=== PATIENT | male | born 1960 | race Caucasian/White ===

== ENCOUNTER 2020-12-19 11:51 | Outpatient (RCR) | payer OTHER, SELFPAY ==
--- NOTE | 2020-12-18 14:11 | PHAR ---
DR CLARK WILL BE THE RENDERING PROVIDER FOR THIS PATIENTS COVID MAB ORDERED BY DR KADE CASTANEDA MD [phone].
[2020-12-19 12:07] VITALS: BP 140/61; PULSE 74; RESP 18; TEMP 36.6; O2SAT 100
[2020-12-19] MEDS: FAMOTIDINE 20 MG TABLET PO (12:08)
[2020-12-19] MEDS: diphenhydrAMINE HCl CAP 25 MG CAPSULE PO (12:08)
[2020-12-19] MEDS: ACETAMINOPHEN 325 MG TABLET 650 MG PO (12:08)
--- NOTE | 2020-12-19 12:22 | PC.NURSE ---
Patient unable to recall home medications at this time.
--- NOTE | 2020-12-19 12:22 | PC.NURSE ---
Received Tomi & Tomi vaccine in 06/2020
[2020-12-19 13:46] VITALS: BP 116/64; PULSE 67; RESP 16; TEMP 36.6; O2SAT 100
--- NOTE | 2020-12-20 15:11 | PC.NURSE ---
Called patient to follow-up regarding antibody infusion yesterday. Patient states they are feeling well today and denies any side effects at this time.
== END 2020-12-19 16:30 | disposition home or self-care (01) ==
LOC: AMCINF 11:51
PROVIDERS: Visit Provider Internal Medicine Hematology & Oncology
DX: Z23 Encounter for immunization (principal); U07.1 COVID-19; E11.9 Type 2 diabetes mellitus without complications; I25.10 Atherosclerotic heart disease of native coronary artery without angina pectoris
CPT/HCPCS: A9270; J7050; M0243